=== PATIENT | male | born 2000 | race Caucasian/White ===

== ENCOUNTER 2025-02-17 18:02 | Emergency (ER) | payer OTHER ==
[~2025-02-17] VITALS: Ht 180.3 cm; Wt 95.0 kg
[2025-02-17] MEDS ORDERED: EAC PO (18:37)
[2025-02-17 18:45] VITALS: BP 144/101
== END 2025-02-17 18:45 | disposition home or self-care (01) ==
LOC: ED 18:02
DX: H53.19 Other subjective visual disturbances (principal); M25.571 Pain in right ankle and joints of right foot
CPT/HCPCS: 99283